=== PATIENT | female | born 1970 | race African-American/Black ===

== ENCOUNTER 2017-09-06 19:29 | Emergency (ER) | payer OTHER ==
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
[2017-09-06 19:41] VITALS: BP 144/80; PULSE 83; TEMP 98.4; BMI 37.7
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
[2017-09-06] MEDS ORDERED: KETOROLAC TROMETHAMINE 60 MG/2 ML VIAL IM ONE (20:16)
[2017-09-06] MEDS ORDERED: KETOROLAC TROMETHAMINE 60 MG/2 ML VIAL ONE (20:18)
== END 2017-09-06 20:41 | disposition home or self-care (01) ==
LOC: JERFT 19:29
PROC: 3E0233Z Introduction of Anti-inflammatory into Muscle, Percutaneous Approach (ICD-10-PCS; principal; 2017-09-06)
DX: S39.012A Strain of muscle, fascia and tendon of lower back, initial encounter (principal); V43.52XA Car driver injured in collision with other type car in traffic accident, initial encounter; Y92.488 Other paved roadways as the place of occurrence of the external cause; Y93.89 Activity, other specified; Y99.8 Other external cause status; I10 Essential (primary) hypertension; E11.9 Type 2 diabetes mellitus without complications; Z79.84 Long term (current) use of oral hypoglycemic drugs
CPT/HCPCS: 84703; 99281-25

== ENCOUNTER 2022-09-13 14:03 | Observation (INO) | payer OTHER ==
[2022-09-13 14:26] VITALS: RESP 18
[2022-09-13] MEDS ORDERED: MECLIZINE HCL 25 MG TABLET (FP) PO ONE (15:46)
[2022-09-13] MEDS ORDERED: MECLIZINE HCL 25 MG TABLET (FP) ONE (16:01)
[2022-09-13 18:50] LABS: BASO % 0.6 % (0-2.0); EOS % 3.1 % (0-4.5); HEMATOCRIT 42.9 % (32.4-45.2); HEMOGLOBIN 14.5 GM/dL (10.7-15.3); LYMPH % 37.5 % (8-40); MCH 32.1 pg (25.7-33.7); MCHC 33.7 g/dl (32.0-36.0); MEAN PLT VOLUME 8.1 fl (7.5-11.1); MONO % 7.7 % (3.8-10.2); NEUT % 51.1 % (42.8-82.8); PLATELET COUNT 391 10^3/uL (134-434); RBC 4.52 M/mm3 (3.60-5.2); RDW 12.7 % (11.6-15.6); WHITE BLOOD COUNT 9.3 K/mm3 (4.0-10.0)
[2022-09-13 19:03] LABS: PH,URINE 5.5 (5.0-8.0); URINE APPEARANCE CLEAR; URINE BILIRUBIN NEGATIVE (NEGATIVE); URINE COLOR YELLOW; URINE GLUCOSE (UA) TRACE (NEGATIVE); URINE KETONE TRACE (NEGATIVE); URINE LEUK ESTERASE NEGATIVE (NEGATIVE); URINE NITRITE NEGATIVE (NEGATIVE); URINE PROTEIN NEGATIVE (NEGATIVE)
[2022-09-13 19:13] LABS: ALBUMIN 3.5 g/dl (3.4-5.0); BLOOD UREA NITROGEN 8.9 mg/dL (7-18)
[2022-09-13 19:16] LABS: CREATININE 0.7 mg/dL (0.55-1.3)
[2022-09-13 19:18] LABS: BILIRUBIN,TOTAL 0.3 mg/dL (0.2-1)
[2022-09-13] MEDS ORDERED: MECLIZINE HCL 12.5 MG TABLET PO PRN (20:00)
[2022-09-13] MEDS ORDERED: PANTOPRAZOLE 40 MG TABLET PO SCH (20:15)
[2022-09-13] MEDS: INSULIN SLIDING SCALE (NOVOLOG) 1 VIAL SQ SCH (21:10)
[2022-09-13] MEDS: HEPARIN NA (PORCINE) 5,000 UNITS/ML 1ML VIAL SQ SCH (21:11)
[2022-09-13] MEDS ORDERED: PANTOPRAZOLE 40 MG TABLET PO ONE (21:14)
[2022-09-13] MEDS ORDERED: LORazepam 2 MG/ML SDV VIAL IVPB PRN (21:39)
[2022-09-13 23:25] VITALS: BMI 35.2
[2022-09-14] MEDS: HEPARIN NA (PORCINE) 5,000 UNITS/ML 1ML VIAL SQ SCH (06:24)
[2022-09-14] MEDS: INSULIN SLIDING SCALE (NOVOLOG) 1 VIAL SQ SCH (06:27)
[2022-09-14 08:50] VITALS: BP 152/85; PULSE 68; TEMP 98.4
[2022-09-14] MEDS ORDERED: LOSARTAN POTASSIUM 50 MG TABLET PO SCH (10:00)
[2022-09-14] MEDS ORDERED: amLODIPine BESYLATE 10 MG TABLET (FP) PO SCH (10:00)
== END 2022-09-14 09:05 | disposition home or self-care (01) ==
LOC: JER 14:03 → JERBED 19:30 → J7W 23:13
PROVIDERS: ADMIT Internal Medicine; ATTEND Internal Medicine
PROC: 3E013VG Introduction of Insulin into Subcutaneous Tissue, Percutaneous Approach (ICD-10-PCS; principal; 2022-09-13)
DX: R26.0 Ataxic gait (principal); R20.2 Paresthesia of skin; F41.9 Anxiety disorder, unspecified; E78.5 Hyperlipidemia, unspecified; M54.2 Cervicalgia; E66.01 Morbid (severe) obesity due to excess calories; R20.0 Anesthesia of skin; Z68.35 Body mass index [BMI] 35.0-35.9, adult; I10 Essential (primary) hypertension
CPT/HCPCS: 0241U-QW; 36415; 70450-TC; 70551-TC; 80053; 81003; 82550; 82962; 85025; 87086; 93005; 93010; 96372; 99285-25; G0378